=== PATIENT | male | born 1940 | race Caucasian/White ===

== ENCOUNTER 2022-01-10 19:35 | Emergency (ER) | payer BC, MEDICARE ==
[~2022-01-10] VITALS: Ht 177.8 cm; Wt 67.7 kg
[~2022-01-10 19:35] MED LIST: CHOL3000 PO; KRIL1CAP PO; MAGN64TA10 PO; THYR65TA6 PO; UBID1CAP54 PO; VITC500T PO
[2022-01-10 20:47] LABS: CLARITY,URINE TURBID (Clear)
[2022-01-10 20:52] LABS: COLOR,URINE GREEN (Yellow); UA COLLECTION TYPE CLN CATCH MIDSTREAM
[2022-01-10 21:03] LABS: BACTERIA,URINE 1+ /HPF (Neg); RBC,URINE TNTC /HPF (0-2); SQUAMOUS EPITHELIAL CELL,UR FEW /LPF (FEW)
[2022-01-10 22:39] LABS: BASOPHILS # (AUTO) 0.1 X10'3 (0-0.2); EOSINOPHILS # (AUTO) 0.1 X10'3 (0-0.9); EOSINOPHILS % (AUTO) 1.1 % (0-6); HEMATOCRIT 38.1 % (42.0-52.0); HEMOGLOBIN 13.5 g/dl (14.0-17.9); LYMPHOCYTES # (AUTO) 1.1 X10'3 (1.1-4.8); LYMPHOCYTES % (AUTO) 18.1 % (21-51); MEAN CORPUSCULAR HEMOGLOBIN 29.7 PG (27.0-31.0); MEAN CORPUSCULAR HGB CONC 35.4 g/dL (33.0-36.5); MEAN CORPUSCULAR VOLUME 83.9 FL (78-98); MEAN PLATELET VOLUME 8.6 FL (7.4-10.4); MONOCYTES # (AUTO) 0.7 X10'3 (0-0.9); MONOCYTES % (AUTO) 11.2 % (2-12); NEUTROPHILS # (AUTO) 4.1 X10'3 (1.8-7.7); NEUTROPHILS % (AUTO) 68.6 % (42-75); PLATELET COUNT 143 X10'3 (140-440); RED BLOOD COUNT 4.55 X10'6 (4.70-6.10); RED CELL DISTRIBUTION WIDTH 15.5 % (11.5-14.5)
[2022-01-10 22:54] LABS: ALANINE AMINOTRANSFERASE 15 U/L (12-78); ALBUMIN 3.8 G/DL (3.4-5.0); ALBUMIN/GLOBULIN RATIO 1.7 (1.1-1.5); ALKALINE PHOSPHATASE 77 IU/L (46-116); ANION GAP 6 (8-16); ASPARTATE AMINO TRANSFERASE 15 U/L (10-37); BLOOD UREA NITROGEN 35 MG/DL (7-18); BUN/CREATININE RATIO 25.4 (5.4-32.0); CALCIUM 8.4 MG/DL (8.5-10.1); CHLORIDE 108 MMOL/L (99-107); CREATININE 1.38 MG/DL (0.60-1.10); GLUCOSE 98 MG/DL (70-104); POTASSIUM 4.3 MMOL/L (3.5-5.1); SODIUM 142 MMOL/L (135-145); TOTAL CARBON DIOXIDE 27.9 MMOL/L (24-32); TOTAL PROTEIN 6.1 G/DL (6.4-8.2); eGFR 49 ML/MIN
[2022-01-10] MEDS ORDERED: normal saline 1000ML IV soln IVB ONE (23:15)
[2022-01-10] MEDS ORDERED: IOHEXOL 300 MG/ML 30ML INFUS..BTL IV ONE (23:16)
[2022-01-11 00:45] VITALS: BP 146/76
== END 2022-01-11 01:27 | disposition home or self-care (01) ==
LOC: ER 19:35
DX: S37.22XA Contusion of bladder, initial encounter (principal); R31.0 Gross hematuria; E03.9 Hypothyroidism, unspecified; M81.0 Age-related osteoporosis without current pathological fracture; E11.9 Type 2 diabetes mellitus without complications; Z90.49 Acquired absence of other specified parts of digestive tract; Z85.9 Personal history of malignant neoplasm, unspecified; Z79.899 Other long term (current) drug therapy; X58.XXXA Exposure to other specified factors, initial encounter; Y93.89 Activity, other specified; Y92.89 Other specified places as the place of occurrence of the external cause; Y99.8 Other external cause status
CPT/HCPCS: 36415; 74176; 74177; 80053; 81001; 85025; 87088; 96360; 99285; J7030

== ENCOUNTER 2025-02-20 16:10 | Emergency (ER) | payer BC ==
[~2025-02-20 16:10] MED LIST changes: -KRIL1CAP PO; +LEVO112T5 PO; +ONDA-243 PO; -THYR65TA6 PO; -UBID1CAP54 PO; -VITC500T PO; +ZINC50CA5 PO
== END 2025-02-20 16:24 | disposition left against medical advice (07) ==
LOC: ER 16:11
DX: R17 Unspecified jaundice (principal); Z53.21 Procedure and treatment not carried out due to patient leaving prior to being seen by health care provider

== ENCOUNTER 2025-02-25 11:27 | Outpatient (CLI) | payer BC ==
--- NOTE | 2025-02-25 12:59 | RADIOLOGY REPORT ---
Exam: CT CT ABDOMEN PELVIS History: JAUNDICE Comparison Study: CT ABDOMEN PELVIS on DOS: 08/09/22 Technique: Multidetector spiral CT of the abdomen and pelvis was performed from lung bases to pubic s ymphysis. Imaging was performed without intravenous contrast. Coronal and sagittal multiplanar reform ats were obtained from the axial data set by the technologist. Radiation Dose : 1. Abdomen/Pelvis: CTDIvol 10.1 mGy, DLP 514.6 mGy*cm. Findings: Evaluation of vasculature and solid organs is limited due to lack of intravenous contrast use. Lung Bases: Left lower lobe atelectasis. Visualized portions of the heart and pericardium are unremar kable. Liver: The liver is normal in size. No focal lesions. Gallbladder and Biliary Tree: The gallbladder is surgically absent. No intrahepatic or extrahepatic b iliary ductal dilatation. Spleen: Unremarkable Pancreas: The pancreas is grossly unremarkable. Adrenal Glands: Unremarkable Kidneys: Kidneys are unremarkable without calculi or hydronephrosis. 1.8 cm right renal cyst. GI tract: The stomach is grossly normal in appearance. No evidence of small bowel wall thickening or abnormal dilatation to suggest bowel obstruction. Colonic diverticulosis without acute diverticulitis . The appendix is not visualized, however no inflammatory changes in the right lower quadrant to sugg est acute appendicitis. Peritoneum/mesentery/retroperitoneum. No evidence of free intraperitoneal air. No ascites. No evidenc e of suspicious lymphadenopathy. Abdominal Wall: Unremarkable. Vasculature: The visualized abdominal aorta is normal in size and caliber. Evaluation of abdominal a nd pelvic vessels is limited due to lack of intravenous contrast. There are atherosclerotic calcifica tions in the aorta. Urinary Bladder: Grossly unremarkable for degree of distention. Pelvic Organs: Unremarkable Musculoskeletal: No aggressive focal bony lesions, acute fractures or dislocation. Bilateral hip repl acements. Old left inferior pubic ramus fracture. Grade 1 anterolisthesis at L4-L5. IMPRESSION: 1. No acute abdominal or pelvic findings. Cause of the patient's jaundice is not elucidated on this s tudy. Consider MRI of the abdomen with MRCP (without and with intravenous contrast if no contraindic ations ) for further evaluation. 2. Cholecystectomy. 3. Diverticulosis without acute diverticulitis.
== END 2025-02-25 23:59 | disposition home or self-care (01) ==
LOC: RAD 11:27
PROVIDERS: ATTEND Nurse Practitioner Family
DX: N28.1 Cyst of kidney, acquired (principal); R17 Unspecified jaundice; K57.30 Diverticulosis of large intestine without perforation or abscess without bleeding; I70.0 Atherosclerosis of aorta; Z90.49 Acquired absence of other specified parts of digestive tract
CPT/HCPCS: 74176

== ENCOUNTER 2025-04-06 10:39 | Outpatient (CLI) | payer BC ==
[2025-04-06 12:01] LABS: CREATININE 1.25 MG/DL (0.60-1.10); TOTAL CARBON DIOXIDE 29.0 MMOL/L (24-32); eGFR 55 ML/MIN
--- NOTE | 2025-04-06 12:46 | RADIOLOGY REPORT ---
CT sinuses HISTORY: CHRONIC SINUSITIS, UNSPECIFIED TECHNIQUE: Serial axial images were performed through the facial bones and reformatted in sagittal an d coronal planes. FINDINGS: Maxillary sinuses pneumatized and clear. Ostiomeatal units patent Slight mucosal thickening in the ethmoid sinus air cells The frontal and sphenoid sinuses are pneumatized and clear Normal pneumatization of the mastoid sinus air cells IMPRESSION: 1. No evidence of acute or significant chronic mastoid sinus disease. Computed Tomographic Radiation Dosimetry Report: Total CTDI vol = 54 mGy Total DLP = 970 mGy-cm All CT scans at this medical facility are performed using dose modulation techniques as appropriate t o a performed exam including the following: Automated exposure control was utilized; adjustment of the MA and/or KvP according to patient size; a nd use of iterative reconstruction technique.
== END 2025-04-06 23:59 | disposition home or self-care (01) ==
LOC: RAD 10:39
PROVIDERS: ATTEND Family Medicine
DX: J32.9 Chronic sinusitis, unspecified (principal)
CPT/HCPCS: 36415; 70486; 80048

== ENCOUNTER 2025-04-07 08:28 | Outpatient (CLI) | payer BC ==
[2025-04-07] MEDS ORDERED: GADOTERATE MEGLUMINE 7.5 MMOL/15 ML VIAL IV ONE (12:35)
--- NOTE | 2025-04-07 13:12 | RADIOLOGY REPORT ---
MRI Abdomen, MRCP without and with IV Contrast Exam Date: 04/07/2025 08:40 AM Comparison: CT CT ABDOMEN PELVIS on DOS: 02/25/25, CT ABDOMEN PELVIS on DOS: 08/09/22, CT ABDOMEN PELVI S on DOS: 01/10/22, CT ABDOMEN PELVIS on DOS: 01/10/22 History: OTHER DISORDERS OF BILIRUBIN METABOLISM GFR 55 Technique: Multisequence multiplanar MRI images were obtained of the abomen. MRCP including 3D SPACE, Radial 2D slabs and SPACE 3D MIP images Images were obtained without and with intravenous contrast. Findings: Liver: The liver is normal in size without focal lesions. Normal liver contour. Spleen: Unremarkable. Pancreas: The pancreas is normal in appearance without focal lesions. Gallbladder and ducts: Gallbladder is surgically absent. The cystic duct, right and left hepatic duct s, common hepatic duct, and common bile ducts are unremarkable. The pancreatic duct is within normal limits. Adrenal glands: Unremarkable. Kidneys: Normal enhancement without suspicious lesions or hydronephrosis. Right upper pole cysts vinayak ures 1.6 cm. Visualized bowel: Grossly unremarkable. Vasculature: Unremarkable. Lymphadenopathy: No evidence for lymphadenopathy. Ascites: Absent. Musculoskeletal: Bone marrow signal is normal. IMPRESSION: Limited examination secondary to extensive patient motion artifact. Post cholecystectomy. No acute or suspicious findings.
== END 2025-04-07 23:59 | disposition home or self-care (01) ==
LOC: MRI02 08:28
PROVIDERS: ATTEND Family Medicine
DX: N28.1 Cyst of kidney, acquired (principal); Z90.49 Acquired absence of other specified parts of digestive tract; E80.6 Other disorders of bilirubin metabolism
CPT/HCPCS: 74183; A9575